=== PATIENT | male | born 1995 | race Caucasian/White ===

== ENCOUNTER 2022-05-24 19:52 | Emergency (ER) | payer SELFPAY ==
[2022-05-24 20:00] VITALS: BP 132/76; PULSE 80; RESP 16; TEMP 36.4; O2SAT 99; BMI 20.4
--- NOTE | 2022-05-24 20:24 | ED_ITS ---
HPI - General Adult General Time Seen by Provider: 20:24 Date Seen: 05/24/22 Chief complaint: Abdominal Pain Stated complaint: stomach pain Time Seen by Provider: 05/24/22 19:57 Source: patient History of Present Illness HPI narrative: Efe is a 26-year-old male no past medical history presents emerged department with abdominal pain. Patient states that around 1:00 p.m. 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 Patient had an AW burger at noon today, did not have any symptoms after that and 9:00 p.m., no associated nausea or vomiting, no diarrhea, denies any smoking or alcohol use, the pain persisted throughout the day until this evening. He has less of an appetite at this time, when he takes big breaths in he gets sharp pains to the area. If he holds his breath there is no pain. Patient did smoke marijuana prior to having symptoms. He denies any shortness of breath at this time. Has not had anything like this in the past. Related Data Home Medications Medication Instructions Recorded Confirmed No Known Home Medications 05/24/22 05/24/22 Allergies Allergy/AdvReac Type Severity Reaction Status Date / Time No Known Drug Allergies Allergy Verified 05/24/22 20:02 Review of Systems Status of ROS: Reports: 10 or more systems reviewed and unremarkable except as noted in History and below [facility] Medical History No significant past medical history Surgical History No significant past surgical history Social History Smoking Status: Current every day smoker Do you use any of these nicotine containing products: None Second hand tobacco smoke exposure: Yes How often do you have a drink containing alcohol: monthly or less How often do you have six or more drinks on one occasion: Never AUDIT-C Alcohol total score: 1 Non-prescribed substance use: denies use Exam Narrative: Exam Narrative: General: NAD laying comfortably HEENT: Pupils equal round reactive to light Neck: Supple, full range of motion Lungs: Clear to auscultation bilaterally Heart: Normal sinus rhythm S1-S2 Abdomen: Soft, bowel sounds present, mild tenderness to palpation the right upper quadrant Muscle skeletal: +5 strength lower upper extremities Neuro: Alert awake and oriented x3 Const: Vital Signs, click to edit/add: Vital Signs - 24 hr 05/24/22 20:00 05/24/22 20:34 05/24/22 21:35 Temperature 97.6 F 97.6 F 97.6 F Pulse Rate [Right Pulse Oximeter] 80 Respiratory Rate 16 Blood Pressure [Ri ght Upper Arm] 132/76 Pulse Oximetry 99 Oxygen Delivery Me thod Room Air 05/24/22 21:36 05/24/22 23:31 05/24/22 23:48 Temperature 97.6 F 97.6 F 97.6 F Pulse Rate [Right Pulse Oximeter] 74 70 70 Respiratory Rate 16 16 16 Blood Pressure [Ri ght Upper Arm] 125/70 111/74 111/74 Pulse Oximetry 99 99 Oxygen Delivery Me thod Room Air Room Air Course Course Hospital Course: 8:00 PM: AIDET performed. vitals are normal. IV peripheral, GI cocktail and 30 mg Toradol for pain. Will obtain CBC, CRP, CMP, lipase urinalysis, suspect gastritis possible cholecystitis versus possible muscle skeletal. Differential diagnosis include but not limited to appendicitis, ischemia, bowel perforation, volvulus and bowel obstruction, other differential diagnosis include are cholecystitis pancreatitis hepatitis gastritis GERD diverticulitis PUD pyelonephritis UTI renal stone testicular torsion scrotal process inflammatory bowel disease as well as other etiologies. Reevaluation(s) Reevaluation #1: Patient had no change in pain with GI cocktail and Toradol, CBC did show mild leukocytosis and mildly elevated total bilirubin, patient did have some bilirubin and RBCs in his urinalysis, patient has had history of kidney stones, will obtain CT abdomen pelvis without IV contrast rule out any gallstones versus urolithiasis. To given additional 4 mg IV morphine for his pain. Time: 21:44 Reevaluation #2: CT abdomen and pelvis without IV contrast: Impression: Subtle heterogeneous hypodense stranding in the periphery of the liver may be related to underlying edema in the setting of hepatitis or hepatic congestion. Correlate with laboratory values. No radiopaque gallstones identified. No gallbladder inflammation or biliary ductal dilatation. 4 millimeter nonobstructing stone in the superior pole of the left kidney. Please note that all CT scans at this facility use dose modulation, iterative reconstruction, and/or weight-based dosing when appropriate to reduce radiation dose to as low as reasonably achievable. Patient was update on his imaging results. he is feeling better after the above care given. Will obtain portable XR chest one view. Time: 23:30 Reevaluation #3: Patient updated on his normal imaging results, no acute findings. Acute hepatitis panel added to his labs based on patient's findings of hypodense stranding in the peripheral of the liver may be related to underlying edema in the setting of hepatitis or hepatic congestion on CT scan. Patient has no risk factors, LFTs otherwise were within normal limits, CRP negative. Plan would be to give contact information to get an appointment in clinic for ED follow up and recheck. Reasons to return were given. All questions answered. Vital Signs Vital signs: Initial Vital Signs Temperature 97.6 F 05/24/22 20:00 Temperature Source Temporal Artery Scan 05/24/22 20:00 Pulse Rate 80 05/24/22 20:00 Respiratory Rate 16 05/24/22 20:00 Blood Pressure 132/76 05/24/22 20:00 Blood Pressure Mean 94 05/24/22 20:00 Blood Pressure Position Sitting 05/24/22 20:00 Pulse Oximetry 99 05/24/22 20:00 Oxygen Delivery Method 05/24/22 20:00 Vital Signs Temperature 97.6 F 05/24/22 20:00 Pulse Rate 80 05/24/22 20:00 Respiratory Rate 16 05/24/22 20:00 Blood Pressure 132/76 05/24/22 20:00 Pulse Oximetry 99 05/24/22 20:00 Oxygen Delivery Method 05/24/22 20:00 Temperature 97.6 F 05/24/22 23:48 Pulse Rate 70 05/24/22 23:48 Respiratory Rate 16 05/24/22 23:48 Blood Pressure 111/74 05/24/22 23:48 Pulse Oximetry 99 05/24/22 23:31 Oxygen Delivery Method 05/24/22 23:31 Medical Decision Making Lab Data Labs: Lab Results 05/24/22 05/24/22 05/24/22 Range/Units 20:25 20:25 20:25 WBC 11.43 H (4.50-11.00) K/uL RBC 5.35 (4.30-5.90) m/uL Hgb 16.7 (13.5-17.5) gm/dL Hct 47.2 (37.0-53.0) % MCV 88 (80-100) fL MCH 31 (26-34) pg MCHC 35 (32-36) gm/dL RDW Coeff of Collette 12.4 (11.5-15.5) % Plt Count 277 (140-440) K/uL Neut % (Auto) 70.6 (42.0-72.0) % Lymph % (Auto) 21.0 (20-44) % [place] % (Auto) 7.0 (0.0-11.0) % Eos % (Auto) 1.0 (0.0-7.0) % Baso % (Auto) 0.3 (0.0-3.0) % Neut # (Auto) 8.10 H (1.7-7.0) K/uL Lymph # (Auto) 2.40 (0.90-2.90) K/uL [place] # (Auto) 0.80 (0.00-0.90) K/UL Eos # (Auto) 0.10 (0.00-0.50) K/uL Baso # (Auto) 0.00 (0.00-0.30) K/uL Abs Immat Gran (auto) 0.01 (0.00-0.30) K/uL Sodium 141 (135-149) mmol/L Potassium 3.8 (3.6-5.1) mmol/L Chloride 103 (96-114) mmol/L Carbon Dioxide 26 (20-32) mmol/L BUN 12 (5-24) mg/dL Creatinine 1.4 (0.5-1.5) mg/dL Estimated Creat Clear 67.27 Estimated GFR 72 ml/min Glucose 105 (60-115) mg/dL Calcium 9.8 (8.4-10.6) mg/dL Total Bilirubin 1.8 H (0.1-1.5) mg/dL AST 27 (12-35) U/L ALT 16 (4-50) U/L Alkaline Phosphatase 53 (40-150) U/L C-Reactive Protein < 0.5 L (0.5-1.0) mg/dL Total Protein 8.3 (6.0-8.3) g/dL Albumin 5.0 (3.3-5.0) g/dL Lipase 24 (23-300) U/L Urine Color Yellow (Yellow) Urine Appearance Clear (Clear) Urine pH 6.0 (5.0-8.5) Ur Specific [place] >= 1.030 (1.000-1.030) Urine Protein 1+ A (Negative) Urine Glucose (UA) Negative (Negative) Urine Ketones 1+ A (Negative) Urine Blood Negative (Negative) Urine Nitrite Negative (Negative) Urine Bilirubin 2+ A (Negative) Urine Urobilinogen 0.2 (0.2-1.0) Ur Leukocyte Esterase Negative (Negative) Urine RBC 2-5 A (0-2) Urine WBC 0-2 (0-5) Ur Squamous Epith Cells None (None-Few) Urine Bacteria None (None) Discharge Plan Discharge Clinical Impression: Right upper quadrant abdominal pain Patient Disposition: Home, Self-Care Condition: Improved Instructions: Abdominal Pain (ED) Additional Instructions: To call the [place] [facility] in the morning [phone] to schedule a follow up appointment early next week. Will be called if any abnormalities on follow up labs. To return if worsening symptoms. Activity Level: Activity as Tolerated Prescriptions: No Action No Known Home Medications Stand Alone Forms: [facility] Info Instructions
[2022-05-24 20:30] LABS: Basophils Percent Auto 0.3 % (0.0-3.0); Hematocrit 47.2 % (37.0-53.0); Hemoglobin* 16.7 gm/dL (13.5-17.5); Immature Granulocytes Abs Auto 0.01 K/uL (0.00-0.30); Mean Corpuscular HGB Conc 35 gm/dL (32-36); Mean Corpuscular Hemoglobin 31 pg (26-34); Mean Corpuscular Volume 88 fL (80-100); Neutrophils Percent Auto 70.6 % (42.0-72.0); Platelet Count* 277 K/uL (140-440); RDW Coefficient of Variation % 12.4 % (11.5-15.5); Red Blood Count 5.35 m/uL (4.30-5.90); White Blood Count* 11.43 K/uL (4.50-11.00)
[2022-05-24 20:31] LABS: Appearance Urine Clear (Clear); Bilirubin Urine 2+ (Negative); Blood Urine Negative (Negative); Color Urine Yellow (Yellow); Glucose Urine Negative (Negative); Ketones Urine 1+ (Negative); Leukocyte Esterase Urine Negative (Negative); Nitrite Urine Negative (Negative); Protein Urine 1+ (Negative); Specific Gravity Urine >= 1.030 (1.000-1.030); Urobilinogen Urine 0.2 (0.2-1.0)
[2022-05-24 20:34] VITALS: TEMP 36.4
[2022-05-24] MEDS: KETOROLAC 30 MG/ML inj IVP (20:34)
[2022-05-24] MEDS: GI COCKTAIL (VISC LIDO/ANTACID) 30 ML PO (20:37)
[2022-05-24 20:38] LABS: Slide Review Reflex No
[2022-05-24 20:43] LABS: Chloride* 103 mmol/L (96-114); Sodium* 141 mmol/L (135-149)
[2022-05-24 20:44] LABS: Potassium* 3.8 mmol/L (3.6-5.1)
[2022-05-24 20:46] LABS: Aspartate Amino Transferase* 27 U/L (12-35); Bilirubin Total* 1.8 mg/dL (0.1-1.5); Carbon Dioxide* 26 mmol/L (20-32); Creatinine* 1.4 mg/dL (0.5-1.5); Est. Creatinine Clearance* 67.27; Estimated Glomerular Filt Rate 72 ml/min; Total Protein* 8.3 g/dL (6.0-8.3)
[2022-05-24 20:47] LABS: Alanine Aminotransferase* 16 U/L (4-50); Alkaline Phosphatase* 53 U/L (40-150); Blood Urea Nitrogen* 12 mg/dL (5-24); Calcium* 9.8 mg/dL (8.4-10.6); Glucose* 105 mg/dL (60-115); Lipase* 24 U/L (23-300)
[2022-05-24 20:50] LABS: C Reactive Protein* < 0.5 mg/dL (0.5-1.0)
[2022-05-24 20:58] LABS: WBC Urine 0-2 (0-5)
[2022-05-24 21:35] VITALS: TEMP 36.4
[2022-05-24 21:36] VITALS: BP 125/70; PULSE 74; RESP 16; TEMP 36.4; O2SAT 99
--- NOTE | 2022-05-24 21:41 | CRLHL7_ITS ---
For Patients: As a result of the Century Cures Act, medical imaging exams and procedure reports are released immediately into your electronic medical record. You may view this report before your referring provider. If you have questions, please contact your health care provider. INDICATION: Right upper quadrant pain, question gallstones.. TECHNIQUE: CT abdomen and pelvis acquired with 63 cc Isovue 370 IV contrast. COMPARISON: None. FINDINGS: Lower chest: Unremarkable. Liver: Subtle hypodense stranding at the periphery of the liver, may be related to edema. Fatty infiltration along the falciform ligament. Otherwise, normal in size and attenuation. No suspicious masses. Gallbladder and bile ducts: Unremarkable. No radiopaque stones or inflammation. No biliary dilatation. Pancreas: Unremarkable. No mass or inflammation. Spleen: Unremarkable. Normal in size. No masses. Adrenal glands: Unremarkable. No nodules. Kidneys: 4 millimeter nonobstructing stone in the superior pole of the left kidney. no hydronephrosis or hydroureter. Scattered too small to characterize hypodensities bilaterally.. GI tract: Unremarkable. Normal in caliber. No sign of mass or inflammation. Normal appendix. Vasculature: Abdominal aorta is normal in caliber. Mesenteric arteries are patent. Lymph nodes: No lymphadenopathy. Peritoneum/Abdominal Wall: Unremarkable. No sign of mass or infiltration. No free air or significant free fluid. Pelvis: Bladder is decompressed. Bones: Unremarkable for age. IMPRESSION: Subtle heterogeneous hypodense stranding in the periphery of the liver may be related to underlying edema in the setting of hepatitis or hepatic congestion. Correlate with laboratory values. No radiopaque gallstones identified. No gallbladder inflammation or biliary ductal dilatation. 4 millimeter nonobstructing stone in the superior pole of the left kidney. Please note that all CT scans at this facility use dose modulation, iterative reconstruction, and/or weight-based dosing when appropriate to reduce radiation dose to as low as reasonably achievable. Dictated by Neena Hinojosa MD @ 05/24/2022 10:33:07 PM (Electronically Signed)
[2022-05-24] MEDS: MORPHINE 4 MG/ML INJ IVP (21:52)
--- NOTE | 2022-05-24 23:20 | CRLHL7_ITS ---
For Patients: As a result of the Cures Act, medical imaging exams and procedure reports are released immediately into your electronic medical record. You may view this report before your referring provider. If you have questions, please contact your health care provider. INDICATION: Lower right chest pain. TECHNIQUE: Chest 1 views. COMPARISON: None. FINDINGS: Lungs: Clear lungs. No consolidation. Pleura: No pleural effusion or pneumothorax. Heart and Mediastinum: The cardiomediastinal silhouette is normal. The vessels are unremarkable. Bones: Unremarkable. IMPRESSION: No acute cardiopulmonary disease. Dictated by Jericho Brennan MD @ 05/24/2022 11:48:42 PM (Electronically Signed)
[2022-05-24 23:31] VITALS: BP 111/74; PULSE 70; RESP 16; TEMP 36.4; O2SAT 99
[2022-05-24 23:48] VITALS: BP 111/74; PULSE 70; RESP 16; TEMP 36.4
[2022-05-26 15:35] LABS: Hepatitis B Core Antibody, IgM Negative (Negative); Hepatitis B Surface Antigen Negative (Negative); Hepatitis C Antibody by CIA Negative (Negative)
== END 2022-05-24 23:59 | disposition home or self-care (01) ==
PROVIDERS: Emergency Provider Student in an Organized Health Care Education/Training Program
DX: R10.11 Right upper quadrant pain (principal)
CPT/HCPCS: 36415; 71045; 74177; 80053; 80074; 81003; 81015; 83690; 85025; 86140; 96374; 96375; 99283; 99284; A9270; J1885; J2270; Q9967

== ENCOUNTER 2023-12-31 10:24 | Emergency (ER) | payer OTHER, SELFPAY ==
[2023-12-31 10:31] VITALS: BP 147/93; PULSE 69; RESP 16; TEMP 37.4; O2SAT 98; BMI 21.0
[2023-12-31 11:18] LABS: PCR FLU A Negative PCR FLU A (Negative); PCR FLU B Negative PCR FLU B (Negative); PCR RSV Negative PCR RSV (Negative); SARS PCR* Negative SARS-CoV-2 (Negative)
--- NOTE | 2023-12-31 13:09 | XR_ITS ---
Patient: BRAULIO TORREZ Facility:?[facility] Patient ID:?[id number] Site Patient ID:?[id number]. Site :?[id number] Study:?XRay-Chest 2 view-12/31/2023 1:49:20 PM Ordering Physician:Jenniffer Oneil Final Report: Indication: Cough and shortness of breath Comparison: Single-view chest May 24, 2022 Technique: PA and lateral views of the chest Findings: There is no focal consolidation, effusion, or pneumothorax. The cardiomediastinal silhouette is within normal limits. The bony thorax is grossly intact. Impression: No acute cardiopulmonary abnormality. Dictated by Jacek Chen MD @ 12/31/2023 2:05:08 PM Signed by:?Jaeck Chen MD @12/31/2023 2:05:08 PM (Electronic Signature)
--- NOTE | 2023-12-31 13:11 | ED.GENADULT ---
HPI - General Adult General Date Seen: 12/31/23 Chief complaint: Shortness of Breath/Dyspnea Stated complaint: difficulty breathing Time Seen by Provider: 12/31/23 13:02 Source: patient and RN notes reviewed Mode of arrival: ambulatory Limitations: no limitations History of Present Illness HPI narrative: Patient is a 28-year-old who has been feeling a little poorly the past couple weeks with either allergies or a little upper respiratory infection, some congestion and cough. Today, he went out to smoke a cigarette and felt short of breath. He notes when he takes a very deep breath that his chest feels tight and sore. If he takes normal breath he does not have any chest pain. He is coughing up some mucus, denies fevers. Denies any lower extremity swelling or pain. Family history of asthma in his sister and mom but he does not carry that diagnosis. No family history of DVT or PE. No recent immobility or travel. No hemoptysis. He normally smokes a pack a day but says he has only been smoking 3 or 4 day for the past couple of weeks. Denies other medical history. Related Data Home Medications Medication Instructions Recorded Confirmed No Known Home Medications 05/24/22 05/24/22 Allergies Allergy/AdvReac Type Severity Reaction Status Date / Time No Known Drug Allergies Allergy Verified 05/24/22 20:02 Review of Systems Status of ROS: Reports: 10 or more systems reviewed and unremarkable except as noted in History and below [facility] Medical History No significant past medical history Surgical History No significant past surgical history Social History Smoking Status: Current every day smoker Do you use any of these nicotine containing products: None Second hand tobacco smoke exposure: Yes Non-prescribed substance use: marijuana (any form) service: No Exam Narrative: Exam Narrative: Vital signs as noted above. In general, an alert, well-appearing patient. Breathing easily, speaks in full sentences. Head: Normocephalic, atraumatic. Eyes: Pupils are equal reactive. Extraocular movements are full. Conjunctivae are normal. ENT: Mucous membranes are moist. Throat is normal. TMs normal bilaterally. Neck: Supple without lymphadenopathy. No stridor. Heart: Regular rate and rhythm. No murmur or rub. Lungs: Some scattered rhonchi. No increased work of breathing. Extremities: Well perfused. No edema. No calf tenderness. Pulses intact. Neurologic: Patient is alert and oriented to person and place. Speech is fluent. Face is symmetric. Moves all extremities equally. Affect: Normal. Skin: Warm and dry. Well perfused. Const: Vital Signs, click to edit/add: Vital Signs - 24 hr 12/31/23 10:31 12/31/23 13:18 Temperature 99.4 F Pulse Rate [Pulse Oximeter] 69 88 Respiratory Rate 16 16 Blood Pressure [Le ft Upper Arm] 147/93 H 119/85 Pulse Oximetry 98 99 Oxygen Delivery Me thod Room Air Room Air Documenting provider has reviewed patient's vital signs: yes Course Course ED Course: Patient presents with some upper respiratory symptoms, cough, shortness of breath with normal O2 sats. Viral swab was negative. Wells score for PE is 0, I do not think he needs ruled out for pulmonary embolism. Will do a chest x-ray to evaluate for possible pneumonia, trial of DuoNeb. Chest x-ray by my review is negative for infiltrate or other abnormalities. Final radiology read is negative. He does feel somewhat improved after DuoNeb. I think it is reasonable to treat him for bronchitis and bronchospasm. Encouraged him to minimize smoking as much as possible. Will discharge with an albuterol inhaler as well as some prednisone. Return any time for worsening, high fevers, significant shortness of breath etcetera. Primary care follow-up if not improving over the next week. Vital Signs Vital signs: Initial Vital Signs Temperature 99.4 F 12/31/23 10:31 Temperature Source Temporal Artery Scan 12/31/23 10:31 Pulse Rate 69 12/31/23 10:31 Respiratory Rate 16 12/31/23 10:31 Blood Pressure 147/93 H 12/31/23 10:31 Blood Pressure Mean 111 H 12/31/23 10:31 Blood Pressure Position Sitting 12/31/23 10:31 Pulse Oximetry 98 12/31/23 10:31 Oxygen Delivery Method Room Air 12/31/23 10:31 Vital Signs Temperature 99.4 F 12/31/23 10:31 Pulse Rate 69 12/31/23 10:31 Respiratory Rate 16 12/31/23 10:31 Blood Pressure 147/93 H 12/31/23 10:31 Pulse Oximetry 98 12/31/23 10:31 Oxygen Delivery Method Room Air 12/31/23 10:31 Temperature 99.4 F 12/31/23 10:31 Pulse Rate 88 12/31/23 13:18 Respiratory Rate 16 12/31/23 13:18 Blood Pressure 119/85 12/31/23 13:18 Pulse Oximetry 99 12/31/23 13:18 Oxygen Delivery Method Room Air 12/31/23 13:18 Medications Administered Medications: Discontinued Medications Generic Name Dose Route Start Last Admin Trade Name Freq PRN Reason Stop Dose Admin Albuterol/Ipratropium 1 neb 12/31/23 13:09 12/31/23 13:16 Iprat-Albut 0.5-2.5 Mg/3 Ml Neb 12/31/23 13:10 1 neb ONCE ONE Administration Medical Decision Making Lab Data Labs: Lab Results 12/31/23 Range/Units 10:35 SARS-CoV-2 (PCR) Negative SARS-CoV-2 (Negative) Influenza Type A (PCR) Negative PCR FLU A (Negative) Influenza Type B (PCR) Negative PCR FLU B (Negative) RSV (PCR) Negative PCR RSV (Negative) Discharge Plan Discharge Clinical Impression: Bronchitis Patient Disposition: Home, Self-Care Condition: Improved Instructions: Acute Bronchitis (ED) Additional Instructions: Prednisone and albuterol as prescribed. Return for worsening shortness of breath, fevers, or other significant deterioration. Primary care follow-up if not improved over the next week. Minimize smoking as much as possible. Prescriptions: No Action No Known Home Medications Follow Up/Referrals: Provider,Not a Local [Primary Care Provider] - Stand Alone Forms: [facility] Info Instructions
[2023-12-31] MEDS: IPRAT-ALBUT 0.5-2.5 MG/3 ML NEB 1 NEB IH (13:16)
[2023-12-31 13:18] VITALS: BP 119/85; PULSE 88; RESP 16; O2SAT 99
== END 2023-12-31 14:25 | disposition home or self-care (01) ==
PROVIDERS: Emergency Provider Emergency Medicine
DX: J40 Bronchitis, not specified as acute or chronic (principal)
CPT/HCPCS: 71046; 87631; 94640; 99283; 99284

== ENCOUNTER 2024-03-26 12:55 | Emergency (ER) | payer OTHER, SELFPAY ==
[2024-03-26] VITALS (9 sets, daily range): BP systolic 92–130; BP diastolic 55–77; PULSE 60–90; RESP 16–18; TEMP 36.1; O2SAT 96–99; BMI 21.0
[2024-03-26] MEDS: 0.9 % SODIUM CHLORIDE 1000 ml 1,000 ML IV ×2 (13:15→14:12)
--- NOTE | 2024-03-26 13:15 | ED.GENADULT ---
HPI - General Adult General Time Seen by Provider: 13:15 Date Seen: 03/26/24 Chief complaint: Nausea/Vomiting Stated complaint: Vomiting blood after alcohol Time Seen by Provider: 03/26/24 13:08 Source: patient and RN notes reviewed Mode of arrival: ambulatory Limitations: no limitations History of Present Illness HPI narrative: This 28-year-old male is presenting to the ER with concern blood in his emesis. Patient admits he drank about 12 beers from about 8:00 to 11:00 p.m. last night. He started vomiting around 5:00 a.m. this morning. He is had had 2 episodes of emesis with a little blood streaking in it. He denies any abdominal pain. He is still feeling nauseated. He has had no history of any blood in his stools. He admits that he probably drinks a couple beers a day but not to this extent. He is dry heaving, retching in triage per nursing staff. He cannot keep water down per his report. No fevers or chills. Related Data Home Medications ?Medication ?Instructions ?Recorded ?Confirmed No Known Home Medications 05/24/22 03/26/24 Previous Rx's ?Medication ?Instructions ?Recorded albuterol sulfate 90 mcg/actuation 2 puff inhalation 6XD PRN 12/31/23 aerosol inhaler shortness of breath or wheezing #6.7 grams prednisone 20 mg tablet 20 mg PO BID #10 tabs 12/31/23 Allergies Allergy/AdvReac Type Severity Reaction Status Date / Time No Known Drug Allergies Allergy Verified 05/24/22 20:02 Review of Systems Status of ROS: Reports: 6 or more systems reviewed and unremarkable except as noted in History and below [facility] Medical History No significant past medical history Surgical History No significant past surgical history Social History Smoking Status: Current every day smoker Do you use any of these nicotine containing products: None Second hand tobacco smoke exposure: Yes How often do you have a drink containing alcohol: 4 or more times a week How many standard drinks containing alcohol do you have on a typical day: 3 or 4 How often do you have six or more drinks on one occasion: Weekly AUDIT-C Alcohol total score: 8 Non-prescribed substance use: marijuana (any form) service: No Exam Const: Vital Signs, click to edit/add: Vital Signs - 24 hr 03/26/24 13:01 03/26/24 13:43 03/26/24 13:44 Temperature 96.9 F L Pulse Rate Pulse Rate [Pulse Oximeter] 67 60 Respiratory Rate 18 16 Blood Pressure Blood Pressure [Ri ght Upper Arm] 130/77 118/71 Pulse Oximetry 99 99 99 Oxygen Delivery Me thod Room Air Room Air 03/26/24 14:00 03/26/24 14:30 03/26/24 14:47 Temperature Pulse Rate 70 Pulse Rate [Pulse Oximeter] 62 66 Respiratory Rate Blood Pressure Blood Pressure [Ri ght Upper Arm] 100/55 L Pulse Oximetry 96 98 98 Oxygen Delivery Me thod Room Air Room Air 03/26/24 14:52 03/26/24 15:00 03/26/24 15:02 Temperature Pulse Rate 90 67 61 Pulse Rate [Pulse Oximeter] Respiratory Rate Blood Pressure 101/62 92/56 L Blood Pressure [Ri ght Upper Arm] Pulse Oximetry 99 98 98 Oxygen Delivery Me thod 28-year-old male is alert, interactive, no parents stress but hanging on an emesis bag. Certainly does look like he does not feel well. Pupils are equal round, conjugate gaze, sclera clear. Symmetrical facial function. Lips look normal but oropharynx with dry mucosa, see no blood. Neck supple, no masses or adenopathy. Lungs are clear, good air entry, no wheezing or crackles. CV regular rate and rhythm no murmur, normal S1-S2, no S3-S4. Abdomen is soft, nontender, nondistended, bowel sounds are normal. There is no rebound or guarding, no masses, organomegaly noted. Patient was ambulatory into the ED of his own accord. Skin visualize the out any concerning change or rash. 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 We did discuss that these are almost always self-limited. We need to work on hydrating him, improve his nausea slid he is not retching or has any further vomiting. We will give him a dose of IV Protonix. Underlying gastritis with his chronic alcohol use may be possible as well. Will observe him here, initiate a L of IV fluids and check appropriate labs. I do not see that any imaging is needed at this time but will consider if there is any concerning labs or change in his status. Reevaluation(s) Time of Reevaluation #1: 14:43 Reevaluation #1: Patient was resting but easily arousable. He is still feeling a little nauseated. He has almost received it a full 2 L of IV fluids and has not had urinate yet. Will give him a 2nd dose of IV Zofran, 1/3 L of fluids with lactated Ringer's. Probable discharge to home after that. Will likely send him home with some Zofran from [facility] (10 tablets, 1 Q8 hours prn). Time of Reevaluation #2: 16:02 Reevaluation #2: Patient has been up to the bathroom ambulatory, did finally urinate. He is reportedly feeling better per nursing staff. Ready to discharge to home at this time. Vital Signs Vital signs: Initial Vital Signs Temperature 96.9 F L 03/26/24 13:01 Temperature Source Temporal Artery Scan 03/26/24 13:01 Pulse Rate 67 03/26/24 13:01 Pulse Rhythm Regular 03/26/24 13:01 Respiratory Rate 18 03/26/24 13:01 Blood Pressure 130/77 03/26/24 13:01 Blood Pressure Mean 94 03/26/24 13:01 Blood Pressure Position Supine 03/26/24 13:01 Pulse Oximetry 99 03/26/24 13:01 Oxygen Delivery Method Room Air 03/26/24 13:01 Vital Signs Temperature 96.9 F L 03/26/24 13:01 Pulse Rate 67 03/26/24 13:01 Respiratory Rate 18 03/26/24 13:01 Blood Pressure 130/77 03/26/24 13:01 Pulse Oximetry 99 03/26/24 13:01 Oxygen Delivery Method Room Air 03/26/24 13:01 Temperature 96.9 F L 03/26/24 13:01 Pulse Rate 61 03/26/24 15:02 Respiratory Rate 16 03/26/24 13:44 Blood Pressure 92/56 L 03/26/24 15:02 Pulse Oximetry 98 03/26/24 15:02 Oxygen Delivery Method Room Air 03/26/24 14:30 Medications Administered Medications: Discontinued Medications Generic Name Dose Route Start Last Admin Trade Name Morganq PRN Reason Stop Dose Admin Sodium Chloride 1,000 mls @ 1,000 mls/hr 03/26/24 13:20 03/26/24 14:10 0.9 % Sodium Chloride 1000 Ml IV 03/26/24 14:19 Infused .Q1H YUNIER Infusion Sodium Chloride 1,000 mls @ 1,000 mls/hr 03/26/24 14:07 03/26/24 15:11 0.9 % Sodium Chloride 1000 Ml IV 03/26/24 15:06 Infused .Q1H YUNIER Infusion Lactated Ringer's 1,000 mls @ 1,000 mls/hr 03/26/24 14:43 03/26/24 15:07 Lactated Ringers 1000 Ml IV 03/26/24 15:42 1,000 mls/hr .Q1H ONE Administration Ondansetron HCl 4 mg 03/26/24 13:19 03/26/24 13:26 Ondansetron 2 Mg/Ml Inj IVP 03/26/24 13:20 4 mg ONCE ONE Administration Ondansetron HCl 4 mg 03/26/24 14:43 03/26/24 14:51 Ondansetron 2 Mg/Ml Inj IVP 03/26/24 14:44 4 mg ONCE ONE Administration Pantoprazole Sodium 80 mg 03/26/24 13:19 03/26/24 13:33 Pantoprazole Sodium 40 Mg Inj IVP 03/26/24 13:20 80 mg ONCE ONE Administration Medical Decision Making Lab Data Lab results reviewed: Yes I reviewed the patient's lab results Labs: Lab Results 03/26/24 Range/Units 13:15 WBC 14.06 H (4.50-11.00) K/uL RBC 5.88 (4.30-5.90) m/uL Hgb 18.9 H (13.5-17.5) gm/dL Hct 52.8 (37.0-53.0) % MCV 90 (80-100) fL MCH 32 (26-34) pg MCHC 36 (32-36) gm/dL RDW Coeff of Collette 12.9 (11.5-15.5) % Plt Count 307 (140-440) K/uL Neut % (Auto) 84.4 H (42.0-72.0) % Lymph % (Auto) 11.0 L (20-44) % [place] % (Auto) 4.1 (0.0-11.0) % Eos % (Auto) 0.1 (0.0-7.0) % Baso % (Auto) 0.3 (0.0-3.0) % Neut # (Auto) 11.90 H (1.7-7.0) K/uL Lymph # (Auto) 1.50 (0.90-2.90) K/uL [place] # (Auto) 0.60 (0.00-0.90) K/UL Eos # (Auto) 0.00 (0.00-0.50) K/uL Baso # (Auto) 0.00 (0.00-0.30) K/uL Abs Immat Gran (auto) 0.00 (0.00-0.30) K/uL Imm/Tot Granulo (auto) 0.1 % INR 0.97 (0.91-1.10) APTT 29 (23-33) Seconds Sodium 139 (135-149) mmol/L Potassium 4.1 (3.6-5.1) mmol/L Chloride 105 (96-114) mmol/L Carbon Dioxide 23 (20-32) mmol/L Anion Gap 11 (7-15) mEq/L BUN 8 (5-24) mg/dL Creatinine 1.1 (0.5-1.5) mg/dL Estimated Creat Clear 84.13 Estimated GFR 94 ml/min Glucose 116 H (60-115) mg/dL Lactate 2.7 H (0.5-1.9) mmol/L Calcium 9.9 (8.4-10.6) mg/dL Total Bilirubin 2.7 H (0.1-1.5) mg/dL AST 41 H (12-35) U/L ALT 24 (4-50) U/L Alkaline Phosphatase 56 (40-150) U/L Total Protein 8.3 (6.0-8.3) g/dL Albumin 5.4 H (3.3-5.0) g/dL Discharge Plan Discharge Clinical Impression: Hematemesis, Acute dehydration Patient Disposition: Home, Self-Care Condition: Improved Instructions: Dehydration (ED), Veronica-Ruiz Syndrome (ED) Additional Instructions: Highly encourage you to refrain from drinking. Prescription for Zofran provided, follow instructions for any further nausea. It is important to try to prevent further vomiting. Can drink and eat as your symptoms allow, no restrictions on diet. If you should start having further vomiting of blood, do need emergent re-evaluation. He can consider trying omeprazole 20 mg daily which is [id number], take this for 2 weeks as well. Omeprazole will help if there is any underlying gastritis in the stomach from alcohol use. You do not need to start this until tomorrow. Activity Level: Activity as Tolerated Discharge Diet: Regular Prescriptions: No Action No Known Home Medications albuterol sulfate 90 mcg/actuation HFA aerosol inhaler 2 puff inhalation 6XD PRN (Reason: shortness of breath or wheezing) Qty: 6.7 0RF prednisone 20 mg tablet 20 mg PO BID Qty: 10 0RF Follow Up/Referrals: Provider,Not a Local [Primary Care Provider] - Stand Alone Forms: [facility] Info Instructions
[2024-03-26] MEDS: ONDANSETRON 2 MG/ML inj 4 MG IVP ×2 (13:26→14:51)
[2024-03-26 13:29] LABS: Basophils Percent Auto 0.3 % (0.0-3.0); Eosinophils Percent Auto 0.1 % (0.0-7.0); Hematocrit 52.8 % (37.0-53.0); Hemoglobin* 18.9 gm/dL (13.5-17.5); Immature Granulocytes Pct Auto 0.1 %; Lactate* 2.7 mmol/L (0.5-1.9); Mean Corpuscular HGB Conc 36 gm/dL (32-36); Mean Corpuscular Hemoglobin 32 pg (26-34); Mean Corpuscular Volume 90 fL (80-100); Monocytes Percent Auto 4.1 % (0.0-11.0); Neutrophils Percent Auto 84.4 % (42.0-72.0); Platelet Count* 307 K/uL (140-440); RDW Coefficient of Variation % 12.9 % (11.5-15.5); Red Blood Count 5.88 m/uL (4.30-5.90); White Blood Count* 14.06 K/uL (4.50-11.00)
[2024-03-26] MEDS: PANTOPRAZOLE SODIUM 40 MG INJ 80 MG IVP (13:33)
[2024-03-26 13:38] LABS: Slide Review Reflex No
[2024-03-26 13:47] LABS: Albumin* 5.4 g/dL (3.3-5.0); Chloride* 105 mmol/L (96-114)
[2024-03-26 13:48] LABS: Potassium* 4.1 mmol/L (3.6-5.1); Sodium* 139 mmol/L (135-149)
[2024-03-26 13:49] LABS: INR 0.97 (0.91-1.10); Prothrombin Time 13.5 Seconds
[2024-03-26 13:50] LABS: Alanine Aminotransferase* 24 U/L (4-50); Alkaline Phosphatase* 56 U/L (40-150); Anion Gap 11 mEq/L (7-15); Aspartate Amino Transferase* 41 U/L (12-35); Bilirubin Total* 2.7 mg/dL (0.1-1.5); Blood Urea Nitrogen* 8 mg/dL (5-24); Carbon Dioxide* 23 mmol/L (20-32); Creatinine* 1.1 mg/dL (0.5-1.5); Est. Creatinine Clearance* 84.13; Estimated Glomerular Filt Rate 94 ml/min; Glucose* 116 mg/dL (60-115); Partial Thromboplastin Time* 29 Seconds (23-33); Total Protein* 8.3 g/dL (6.0-8.3)
[2024-03-26 13:51] LABS: Calcium* 9.9 mg/dL (8.4-10.6)
[2024-03-26] MEDS: LACTATED RINGERS 1000 ML 1,000 ML IV (15:07)
--- NOTE | 2024-03-26 15:46 | ED.NURSE ---
was up to br to void. is feeling much better.
== END 2024-03-26 16:14 | disposition home or self-care (01) ==
PROVIDERS: Emergency Provider Family Medicine
DX: K92.0 Hematemesis (principal); E86.0 Dehydration
CPT/HCPCS: 36415; 80053; 83605; 85025; 85610; 85730; 94761; 96374; 96375; 99284; J2405; J2470; J7030; J7120

== ENCOUNTER 2024-07-10 21:56 | Emergency (ER) | payer SELFPAY ==
[2024-07-10 22:00] VITALS: BP 139/86; PULSE 78; RESP 16; TEMP 36.6; O2SAT 96; BMI 20.4
--- NOTE | 2024-07-10 22:10 | ED.GENADULT ---
HPI - General Adult General Chief complaint: Alcohol/Intoxication Stated complaint: ETOH Time Seen by Provider: 07/10/24 22:09 History of Present Illness HPI narrative: Patient is alert and orientated. Reports drinking [place] (estimates 1/ 2L) since 6PM. Has vomited several times, says he feels terrible. 28-year-old and man presenting to the emergency department. Says he has been sick all week. Began with vomiting and over last 2 days has had increasing abdominal pain. Seems to have isolated down to the right lower abdomen to his worried about appendicitis. Also has pain in his testicles bilaterally. Sure to temp to 101 yesterday he thinks. Apparently has had kidney stones before. Does have Zofran available from ?way back in ?. Has not taken it sounds like because he thought it was old. Seen in this emergency department 3 months ago approximately with concern of vomiting and possible Veronica-Ruiz tears, hematemesis, alcohol abuse. Related Data Home Medications ?Medication ?Instructions ?Recorded ?Confirmed No Known Home Medications 05/24/22 03/26/24 Previous Rx's ?Medication ?Instructions ?Recorded albuterol sulfate 90 mcg/actuation 2 puff inhalation 6XD PRN 12/31/23 aerosol inhaler shortness of breath or wheezing #6.7 grams prednisone 20 mg tablet 20 mg PO BID #10 tabs 12/31/23 Allergies Allergy/AdvReac Type Severity Reaction Status Date / Time No Known Drug Allergies Allergy Verified 05/24/22 20:02 Review of Systems Status of ROS: Reports: 6 or more systems reviewed and unremarkable except as noted in History and below [facility] Medical History No significant past medical history Surgical History No significant past surgical history Social History Smoking Status: Current some day smoker What tobacco products do you use: cigarettes Smoking packs per day: 1 Smoking cigarettes per day: 20.0 Do you use any of these nicotine containing products: None Second hand tobacco smoke exposure: Yes How often do you have a drink containing alcohol: 4 or more times a week How many standard drinks containing alcohol do you have on a typical day: 3 or 4 How often do you have six or more drinks on one occasion: Monthly AUDIT-C Alcohol total score: 7 Non-prescribed substance use: marijuana (any form) service: No Exam Narrative: Exam Narrative: Slim. Fatigued. Did arrive retching. Mouth is hyperemic. Some darkened/hairy tongue. Abdomen is flat and tender suprapubic centrally and maybe a little left not actually in the right low abdomen. Lungs are clear. Heart in regular rate and rhythm. Cranial nerves 2-12 intact. Const: Vital Signs, click to edit/add: Vital Signs - 24 hr 07/10/24 22:00 Temperature 97.8 F Pulse Rate [Pulse Oximeter] 78 Respiratory Rate 16 Blood Pressure [Ri ght Upper Arm] 139/86 Pulse Oximetry 96 Oxygen Delivery Me thod Room Air Documenting provider has reviewed patient's vital signs: yes Course Vital Signs Vital signs: Initial Vital Signs Temperature 97.8 F 07/10/24 22:00 Temperature Source Temporal Artery Scan 07/10/24 22:00 Pulse Rate 78 07/10/24 22:00 Respiratory Rate 16 07/10/24 22:00 Blood Pressure 139/86 07/10/24 22:00 Blood Pressure Mean 103 07/10/24 22:00 Pulse Oximetry 96 07/10/24 22:00 Oxygen Delivery Method Room Air 07/10/24 22:00 Vital Signs Temperature 97.8 F 07/10/24 22:00 Pulse Rate 78 07/10/24 22:00 Respiratory Rate 16 07/10/24 22:00 Blood Pressure 139/86 07/10/24 22:00 Pulse Oximetry 96 07/10/24 22:00 Oxygen Delivery Method Room Air 07/10/24 22:00 Temperature 97.8 F 07/10/24 22:00 Pulse Rate 66 07/11/24 00:08 Respiratory Rate 14 07/11/24 00:08 Blood Pressure 139/86 07/10/24 22:00 Pulse Oximetry 96 07/11/24 00:08 Oxygen Delivery Method Room Air 07/11/24 00:08 Medications Administered Medications: Discontinued Medications Generic Name Dose Route Start Last Admin Trade Name Freq PRN Reason Stop Dose Admin Sodium Chloride 500 mls @ 500 mls/hr 07/10/24 22:34 07/11/24 00:04 0.9 % Sodium Chloride 500 Ml IV 07/10/24 23:33 Infused .Q1H ONE Infusion Sodium Chloride 500 mls @ 500 mls/hr 07/10/24 23:47 07/11/24 01:10 0.9 % Sodium Chloride 500 Ml IV 07/11/24 00:46 Infused .Q1H ONE Infusion Ketorolac Tromethamine 30 mg 07/10/24 22:34 07/10/24 22:59 Ketorolac 30 Mg/Ml Inj IVP 07/10/24 22:35 30 mg ONCE ONE Administration Ondansetron HCl 4 mg 07/10/24 22:34 07/10/24 23:00 Ondansetron 2 Mg/Ml Inj IVP 07/10/24 22:35 4 mg ONCE ONE Administration Medical Decision Making MDM Narrative Medical decision making narrative: Initiated IV. Presume cyclic vomiting of some sort probably related to alcohol ingestion as described. Abdominal exam is more reassuring. Would hydrate, antiemetics, look for red flags in the labs warrant further investigation. Monitor for improvement. Received couple of L of IV hydration. Zofran and ketorolac. Overall improved partially assessed at the is was actually able to sleep here in the emergency department. I did address detox with him but he is not interested at this time. Ambulatory from the ER Medical Records Medical records reviewed: Yes I reviewed the patient's medical records Lab Data Lab results reviewed: Yes I reviewed the patient's lab results Labs: Lab Results 07/10/24 07/10/24 Range/Units 22:55 23:40 WBC 9.80 (4.50-11.00) K/uL RBC 5.44 (4.30-5.90) m/uL Hgb 17.2 (13.5-17.5) gm/dL Hct 49.1 (37.0-53.0) % MCV 90 (80-100) fL MCH 32 (26-34) pg MCHC 35 (32-36) gm/dL RDW Coeff of Collette 12.6 (11.5-15.5) % Plt Count 216 (140-440) K/uL Neut % (Auto) 63.5 (42.0-72.0) % Lymph % (Auto) 23.4 (20-44) % [place] % (Auto) 8.4 (0.0-11.0) % Eos % (Auto) 2.7 (0.0-7.0) % Baso % (Auto) 1.0 (0.0-3.0) % Neut # (Auto) 6.23 (1.7-7.0) K/uL Lymph # (Auto) 2.29 (0.90-2.90) K/uL [place] # (Auto) 0.80 (0.00-0.90) K/UL Eos # (Auto) 0.26 (0.00-0.50) K/uL Baso # (Auto) 0.10 (0.00-0.30) K/uL Abs Immat Gran (auto) 0.10 (0.00-0.30) K/uL Imm/Tot Granulo (auto) 1.0 % Sodium 137 (135-149) mmol/L Potassium 3.5 L (3.6-5.1) mmol/L Chloride 103 (96-114) mmol/L Carbon Dioxide 25 (20-32) mmol/L Anion Gap 9 (7-15) mEq/L BUN 11 (5-24) mg/dL Creatinine 1.2 (0.5-1.5) mg/dL Estimated Creat Clear 77.12 Estimated GFR 85 ml/min Glucose 100 (60-115) mg/dL Lactate 1.3 (0.5-1.9) mmol/L Calcium 9.0 (8.4-10.6) mg/dL Total Bilirubin 0.9 (0.1-1.5) mg/dL Direct Bilirubin 0.1 (0.0-0.5) mg/dL AST 38 H (12-35) U/L ALT 29 (4-50) U/L Alkaline Phosphatase 51 (40-150) U/L Total Protein 7.3 (6.0-8.3) g/dL Albumin 4.5 (3.3-5.0) g/dL Lipase 60 (23-300) U/L Urine Color Yellow (Yellow) Urine Appearance Clear (Clear) Urine pH 6.0 (5.0-8.5) Ur Specific [place] 1.025 (1.000-1.030) Urine Protein Negative (Negative) Urine Glucose (UA) Negative (Negative) Urine Ketones Negative (Negative) Urine Blood Negative (Negative) Urine Nitrite Negative (Negative) Urine Bilirubin Negative (Negative) Urine Urobilinogen 0.2 (0.2-1.0) Ur Leukocyte Esterase Negative (Negative) Urine RBC 0-2 (0-2) Urine WBC 0-2 (0-5) Ur Squamous Epith Cells None (None-Few) Urine Bacteria None (None) Ethyl Alcohol 0.21 H (0.01-0.03) % SARS-CoV-2 (PCR) Negative SARS-CoV-2 (Negative) Influenza Type A (PCR) Negative PCR FLU A (Negative) Influenza Type B (PCR) Negative PCR FLU B (Negative) Lab Acknowledgement Test Added Discharge Plan Discharge Clinical Impression: Alcohol intoxication, Abdominal pain, Vomiting, Dehydration Additional Instructions: I am concerned that these episodes or visits will continue to happen or might get worse if you do not stop drinking. You need to stop drinking. I understand you do not want to go to detox tonight. You might look into this on your own. Otherwise attend AA meetings or similar regularly. Prescribing more Zofran for you from [facility]. Prescriptions: No Action No Known Home Medications albuterol sulfate 90 mcg/actuation HFA aerosol inhaler 2 puff inhalation 6XD PRN (Reason: shortness of breath or wheezing) Qty: 6.7 0RF prednisone 20 mg tablet 20 mg PO BID Qty: 10 0RF Follow Up/Referrals: Provider,Not a Local [Primary Care Provider] - Stand Alone Forms: [employer] Info Instructions
[2024-07-10] MEDS: KETOROLAC 30 MG/ML inj IVP (22:59)
[2024-07-10] MEDS: ONDANSETRON 2 MG/ML inj 4 MG IVP (23:00)
[2024-07-10] MEDS: 0.9 % SODIUM CHLORIDE 500 ML 500 ML IV (23:00)
[2024-07-10 23:13] LABS: Lactate* 1.3 mmol/L (0.5-1.9)
[2024-07-10 23:15] LABS: Eosinophils Absolute Auto 0.26 K/uL (0.00-0.50); Eosinophils Percent Auto 2.7 % (0.0-7.0); Hematocrit 49.1 % (37.0-53.0); Hemoglobin* 17.2 gm/dL (13.5-17.5); Lymphocytes Absolute Auto 2.29 K/uL (0.90-2.90); Lymphocytes Percent Auto 23.4 % (20-44); Mean Corpuscular HGB Conc 35 gm/dL (32-36); Mean Corpuscular Hemoglobin 32 pg (26-34); Mean Corpuscular Volume 90 fL (80-100); Monocytes Percent Auto 8.4 % (0.0-11.0); Neutrophils Absolute Auto 6.23 K/uL (1.7-7.0); Neutrophils Percent Auto 63.5 % (42.0-72.0); Platelet Count* 216 K/uL (140-440); RDW Coefficient of Variation % 12.6 % (11.5-15.5); Red Blood Count 5.44 m/uL (4.30-5.90)
[2024-07-10 23:20] LABS: Appearance Urine Clear (Clear); Bilirubin Urine Negative (Negative); Blood Urine Negative (Negative); Color Urine Yellow (Yellow); Glucose Urine Negative (Negative); Ketones Urine Negative (Negative); Leukocyte Esterase Urine Negative (Negative); Nitrite Urine Negative (Negative); Protein Urine Negative (Negative); Slide Review Reflex No; Specific Gravity Urine 1.025 (1.000-1.030); Urobilinogen Urine 0.2 (0.2-1.0)
[2024-07-10 23:28] LABS: Albumin* 4.5 g/dL (3.3-5.0); Chloride* 103 mmol/L (96-114)
[2024-07-10 23:29] LABS: Potassium* 3.5 mmol/L (3.6-5.1); Sodium* 137 mmol/L (135-149)
[2024-07-10 23:31] LABS: Alkaline Phosphatase* 51 U/L (40-150); Anion Gap 9 mEq/L (7-15); Aspartate Amino Transferase* 38 U/L (12-35); Bilirubin Direct* 0.1 mg/dL (0.0-0.5); Bilirubin Total* 0.9 mg/dL (0.1-1.5); Blood Urea Nitrogen* 11 mg/dL (5-24); Carbon Dioxide* 25 mmol/L (20-32); Creatinine* 1.2 mg/dL (0.5-1.5); Est. Creatinine Clearance* 77.12; Estimated Glomerular Filt Rate 85 ml/min; Glucose* 100 mg/dL (60-115); Total Protein* 7.3 g/dL (6.0-8.3)
[2024-07-10 23:32] LABS: Alanine Aminotransferase* 29 U/L (4-50); Ethanol* 0.21 % (0.01-0.03)
[2024-07-10 23:38] LABS: RBC Urine 0-2 (0-2); WBC Urine 0-2 (0-5)
[2024-07-10 23:53] LABS: PCR FLU A Negative PCR FLU A (Negative); PCR FLU B Negative PCR FLU B (Negative); SARS PCR* Negative SARS-CoV-2 (Negative)
[2024-07-11] MEDS: 0.9 % SODIUM CHLORIDE 500 ML 500 ML IV (00:05)
[2024-07-11 00:08] VITALS: PULSE 66; RESP 14; O2SAT 96
[2024-07-11 00:34] LABS: Lipase* 60 U/L (23-300)
== END 2024-07-11 01:34 | disposition home or self-care (01) ==
PROVIDERS: Emergency Provider Family Medicine
DX: F10.129 Alcohol abuse with intoxication, unspecified (principal); E86.0 Dehydration; R11.10 Vomiting, unspecified
CPT/HCPCS: 36415; 80048; 80076; 81001; 82077; 83605; 83690; 85025; 87631; 96374; 96375; 99284; J1885; J2405; J7030

== ENCOUNTER 2024-09-07 21:56 | Emergency (ER) | payer OTHER, SELFPAY ==
[2024-09-07 22:15] VITALS: BP 128/78; PULSE 72; RESP 20; TEMP 36.6
--- NOTE | 2024-09-07 22:35 | ED.GENADULT ---
HPI - General Adult General Date Seen: 09/07/24 Chief complaint: Nausea/Vomiting Stated complaint: vomiting, stomach pain Time Seen by Provider: 09/07/24 22:35 History of Present Illness HPI narrative: 29-year-old male presenting to the ER today with his and his 3-year-old daughter (who is also being seen for vomiting and diarrhea). He developed symptoms this evening of nausea, vomiting, diarrhea. He and his note that their other child has been sick a few days ago with vomiting and diarrhea. His was sick yesterday. His daughter who is being seen with him today has been sick since yesterday. He 1st developed symptoms at 4:00 a.m.. He has had multiple episodes of nonbloody, nonbilious emesis. He has also had several episodes of liquidy diarrhea. No mucus or blood in his stool. He is having some abdominal pain from retching. No fever or chills. He has no known recent travel. No recent antibiotics Related Data Home Medications ?Medication ?Instructions ?Recorded ?Confirmed No Known Home Medications 05/24/22 03/26/24 Previous Rx's ?Medication ?Instructions ?Recorded albuterol sulfate 90 mcg/actuation 2 puff inhalation 6XD PRN 12/31/23 aerosol inhaler shortness of breath or wheezing #6.7 grams prednisone 20 mg tablet 20 mg PO BID #10 tabs 12/31/23 Allergies Allergy/AdvReac Type Severity Reaction Status Date / Time No Known Drug Allergies Allergy Verified 05/24/22 20:02 [facility] Medical History No significant past medical history Surgical History No significant past surgical history Social History Smoking Status: Current some day smoker What tobacco products do you use: cigarettes Smoking packs per day: 1 Smoking cigarettes per day: 20.0 Do you use any of these nicotine containing products: None Second hand tobacco smoke exposure: Yes How often do you have a drink containing alcohol: 4 or more times a week How many standard drinks containing alcohol do you have on a typical day: 3 or 4 How often do you have six or more drinks on one occasion: Monthly AUDIT-C Alcohol total score: 7 Non-prescribed substance use: marijuana (any form) service: No Exam Narrative: Exam Narrative: Constitutional: Appears well-developed and well-nourished. Alert. Conversant. Non toxic. HENT: Head: Atraumatic. Nose: Nose normal. Mouth/Throat: Oral mucosa is clear and moist. no trismus. Pharynx normal. Eyes: Conjunctivae normal. EOM normal. Pupils equal, round, and reactive to light. No scleral icterus. Neck: Normal range of motion. Neck supple. No tracheal deviation present. Cardiovascular: Normal rate, regular rhythm. No gallop. No friction rub. No murmur heard. Normal capillary refill. Pulmonary/Chest: Effort normal. No stridor. No respiratory distress. No wheezes. No rales. No rhonchi . No tenderness. Abdominal: Soft. Bowel sounds normal. No distension. No mass. No tenderness. No rebound. No guarding. No CVA tenderness Musculoskeletal: RUE: Normal range of motion. No tenderness. No deformity LUE: Normal range of motion. No tenderness. No deformity RLE: Normal range of motion. No edema. No tenderness. No deformity LLE: Normal range of motion. No edema. No tenderness. No deformity Neurological: Alert and oriented to person, place, and time. Normal strength. CN II-VII intact. No sensory deficit. GCS eye subscore is 4. GCS verbal subscore is 5. GCS motor subscore is 6. Normal coordination Skin: Skin is warm and dry. No rash noted. No pallor. Normal capillary refill. Normal skin turgor. Psychiatric: Normal mood. Normal affect. Const: Vital Signs, click to edit/add: Vital Signs - 24 hr 09/07/24 22:15 Temperature 97.9 F Pulse Rate [Pulse Oximeter] 72 Respiratory Rate 20 Blood Pressure [Le ft Upper Arm] 128/78 Oxygen Delivery Me thod Room Air Course Course ED Course: Recheck-nausea improved after Zofran. Tolerated p.o. challenge. Now is sleeping on the bed. Feeling better. Vital Signs Vital signs: Initial Vital Signs Temperature 97.9 F 09/07/24 22:15 Temperature Source Temporal Artery Scan 09/07/24 22:15 Pulse Rate 72 09/07/24 22:15 Respiratory Rate 20 09/07/24 22:15 Blood Pressure 128/78 09/07/24 22:15 Blood Pressure Mean 94 09/07/24 22:15 Oxygen Delivery Method Room Air 09/07/24 22:15 Vital Signs Temperature 97.9 F 09/07/24 22:15 Pulse Rate 72 09/07/24 22:15 Respiratory Rate 20 09/07/24 22:15 Blood Pressure 128/78 09/07/24 22:15 Oxygen Delivery Method Room Air 09/07/24 22:15 Temperature 97.9 F 09/07/24 22:15 Pulse Rate 72 09/07/24 22:15 Respiratory Rate 20 09/07/24 22:15 Blood Pressure 128/78 09/07/24 22:15 Oxygen Delivery Method Room Air 09/07/24 22:15 Medications Administered Medications: Discontinued Medications Generic Name Dose Route Start Last Admin Trade Name Freq PRN Reason Stop Dose Admin Loperamide HCl 4 mg 09/07/24 22:46 09/07/24 23:09 Loperamide Hcl 2 Mg Capsule PO 4 mg ONCE PRN Administration Ondansetron HCl 4 mg 09/07/24 22:46 09/07/24 23:09 Ondansetron Odt 4 Mg Tab PO 09/07/24 22:47 4 mg ONCE ONE Administration Medical Decision Making MDM Narrative Medical decision making narrative: This patient presents with vomiting and diarrhea. The patient's symptoms and exam could be consistent with a viral GI infection. His family members including his have been sick lately. One of his daughters with sick a few days ago and is now better. His was sick yesterday and she is now improving. His 3-year-old daughter as been sick since yesterday and she is being seen with him tonight. This pattern of spread would suggest a viral gastroenteritis. There is no high fever, severe pain, bilious or bloody emesis, blood or mucous in the stool, severe abdominal pain, or other concerning signs for a bacterial infection. No recent travel or high risk exposure for baceraial pathogen. No recent antibiotics or risk factors for C. diff. I don't see any evidence for appendicitis, bowel obstruction, abscess, bowel perforation, or other surgical emergency.. After meds given the patient is feeling better. At this point, the patient is non-septic appearing and well hydrated.I think the patient can be managed as an outpatient. We have discussed oral rehydration strategies. They understand and can perform the needed interventions at home. I have provided a prescription for antiemetics to facilitate oral hydration (Zofran 0 DT-[facility]). We have discussed the signs and symptoms of worsening dehydration. They understand the need for immediate reevaluation if any of these symptoms occur. They are also directed to obtain close outpatient follow up within 2-3 days. Discharge Plan Discharge Clinical Impression: Nausea, vomiting and diarrhea Patient Disposition: Home, Self-Care Condition: Stable Instructions: Acute Nausea and Vomiting (DC), Acute Diarrhea (ED) Additional Instructions: As we discussed, use Zofran every 8 hours as needed for nausea and vomiting. You can take more Imodium every 2-4 hours if needed with each loose stool. Please return to the ER right if you have worsening symptoms especially uncontrolled vomiting or diarrhea, dehydration, bloody or mucousy stool, high fever, or any other concerns. Come back to the ER or recheck with your doctor in 48 hours if you are not improving. Prescriptions: No Action No Known Home Medications albuterol sulfate 90 mcg/actuation HFA aerosol inhaler 2 puff inhalation 6XD PRN (Reason: shortness of breath or wheezing) Qty: 6.7 0RF prednisone 20 mg tablet 20 mg PO BID Qty: 10 0RF Follow Up/Referrals: Provider,Not a Local [Primary Care Provider] - Stand Alone Forms: [employer] Info Instructions
[2024-09-07] MEDS: LOPERAMIDE HCL 2 MG CAPSULE 4 MG PO (23:09)
[2024-09-07] MEDS: ONDANSETRON ODT 4 MG TAB PO (23:09)
--- NOTE | 2024-09-08 00:24 | PC.NURSE ---
written and verbal D/ per MD and RN. pt encouraged to take small sips of fluids and perhaps clear liquids until am. Pt ambulate out with stable gait
== END 2024-09-08 00:30 | disposition home or self-care (01) ==
PROVIDERS: Emergency Provider Emergency Medicine
DX: R11.2 Nausea with vomiting, unspecified (principal); R19.7 Diarrhea, unspecified
CPT/HCPCS: 99283; A9270

== ENCOUNTER 2024-11-24 19:36 | Emergency (ER) | payer OTHER, SELFPAY ==
[2024-11-24 19:38] VITALS: BP 157/82; PULSE 85; RESP 18; TEMP 36.7; O2SAT 98; BMI 20.4
--- NOTE | 2024-11-24 19:41 | ED.GENADULT ---
HPI - General Adult General Date Seen: 11/24/24 Chief complaint: Abdominal Pain Stated complaint: R side abdominal pain, nausea Time Seen by Provider: 11/24/24 19:37 History of Present Illness HPI narrative: 29 yo M presenting to the ER today for abdominal pain and nausea. He reports a previous history of 2 known kidney stones. No previous abdominal surgeries. No diagnosis of any long-term GI problems such as Crohn's disease, IBD, IBS, cyclic vomiting. In review of his records I saw him about 3 months ago for vomiting and diarrhea (at that time his child was also been seeing for diarrhea). Prior to that had been seen in the ER in June 2024 for abdominal pain. Nonspecific lab workup and symptomatic management. He reports that for the past 3 or 4 days he has been having pain in his right flank and sometimes in the right lower quadrant mid abdomen that radiates down into both of his testicles. He thought it was probably passing another kidney stone. He says he was feeling quite a bit better yesterday and earlier today. This evening pain flared up. Pain is again in his right lower quadrant and bladder area but also in the epigastrium and right upper quadrant. He feels those abdomen is hot and ?on fire?. He is nauseous but not vomiting. He is not running a fever. He had difficulty urinating tonight describing that it was difficult to get urine out in a came out and small spurts and was somewhat dark and concentrated. No visible blood or sediment in the urine. He is not having any more pain in his testicles. He has not noted any testicular swelling or lumps. No known injury. He does drink alcohol, almost every day. He does endorse some marijuana use but says it is only occasional. Not regular. No previous diagnosis of cannabis hyperemesis syndrome or cyclic vomiting. Related Data Home Medications ?Medication ?Instructions ?Recorded ?Confirmed No Known Home Medications 05/24/22 03/26/24 Previous Rx's ?Medication ?Instructions ?Recorded albuterol sulfate 90 mcg/actuation 2 puff inhalation 6XD PRN 12/31/23 aerosol inhaler shortness of breath or wheezing #6.7 grams prednisone 20 mg tablet 20 mg PO BID #10 tabs 12/31/23 Allergies Allergy/AdvReac Type Severity Reaction Status Date / Time No Known Drug Allergies Allergy Verified 05/24/22 20:02 [facility] Medical History No significant past medical history Surgical History No significant past surgical history Social History Smoking Status: Current some day smoker What tobacco products do you use: cigarettes Smoking packs per day: 1 Smoking cigarettes per day: 20.0 Do you use any of these nicotine containing products: None Second hand tobacco smoke exposure: Yes How often do you have a drink containing alcohol: 4 or more times a week How many standard drinks containing alcohol do you have on a typical day: 3 or 4 How often do you have six or more drinks on one occasion: Monthly AUDIT-C Alcohol total score: 7 Non-prescribed substance use: marijuana (any form) service: No Exam Narrative: Exam Narrative: Constitutional: Appears well-developed and well-nourished. Alert. Conversant. Looks uncomfortable, somewhat greenish tinge to his face. No jaundice. HENT: Head: Atraumatic. Nose: Nose normal. Mouth/Throat: Oral mucosa is clear and moist. no trismus. Pharynx normal. Tonsils symmetric. No tonsillar enlargement, erythema, or exudate. Eyes: Conjunctivae normal. EOM normal. Pupils equal, round, and reactive to light. No scleral icterus. Neck: Normal range of motion. Neck supple. No tracheal deviation present. Cardiovascular: Normal rate, regular rhythm. No gallop. No friction rub. No murmur heard. Symmetric radial artery pulses Pulmonary/Chest: Effort normal. No stridor. No respiratory distress. No wheezes. No rales. No rhonchi . Abdominal: Soft. Bowel sounds normal. No distension. No mass. Right lower quadrant and right upper quadrant/epigastric> suprapubic and left lower quad tenderness. No rebound. No guarding. Mild bilateral CVA tenderness Musculoskeletal: RUE: Normal range of motion. No tenderness. No deformity LUE: Normal range of motion. No tenderness. No deformity RLE: Normal range of motion. No edema. No tenderness. No deformity LLE: Normal range of motion. No edema. No tenderness. No deformity Neurological: Alert and oriented to person, place, and time. Normal strength. CN II-VII intact. No sensory deficit. GCS eye subscore is 4. GCS verbal subscore is 5. GCS motor subscore is 6. Normal coordination Skin: Skin is warm and dry. No rash noted. No pallor. Normal capillary refill. Psychiatric: Normal mood. Normal affect. Const: Vital Signs, click to edit/add: Vital Signs - 24 hr 11/24/24 19:38 Temperature 98.0 F Pulse Rate [Left P ulse Oximeter] 85 Respiratory Rate 18 Blood Pressure [Ri ght Upper Arm] 157/82 H Pulse Oximetry 98 Oxygen Delivery Me thod Room Air Course Course ED Course: Recheck-has completed L of saline. Nausea improved. Still some pain but overall feels comfortable enough he can go home. He lives close to the hospital but, but with the bad weather, does not want stay here at the ER too late Vital Signs Vital signs: Initial Vital Signs Temperature 98.0 F 11/24/24 19:38 Temperature Source Temporal Artery Scan 11/24/24 19:38 Pulse Rate 85 11/24/24 19:38 Pulse Rhythm Regular 11/24/24 19:38 Respiratory Rate 18 11/24/24 19:38 Blood Pressure 157/82 H 11/24/24 19:38 Blood Pressure Mean 107 H 11/24/24 19:38 Blood Pressure Position Sitting 11/24/24 19:38 Pulse Oximetry 98 11/24/24 19:38 Oxygen Delivery Method Room Air 11/24/24 19:38 Vital Signs Temperature 98.0 F 11/24/24 19:38 Pulse Rate 85 11/24/24 19:38 Respiratory Rate 18 11/24/24 19:38 Blood Pressure 157/82 H 11/24/24 19:38 Pulse Oximetry 98 11/24/24 19:38 Oxygen Delivery Method Room Air 11/24/24 19:38 Temperature 98.0 F 11/24/24 19:38 Pulse Rate 85 11/24/24 19:38 Respiratory Rate 18 11/24/24 19:38 Blood Pressure 157/82 H 11/24/24 19:38 Pulse Oximetry 98 11/24/24 19:38 Oxygen Delivery Method Room Air 11/24/24 19:38 Medications Administered Medications: Generic Name Dose Route Start Last Admin Trade Name Freq PRN Reason Stop Dose Admin Hydromorphone HCl 0.5 mg 11/24/24 19:53 11/24/24 20:03 Hydromorphone 0.5 Mg/0.5 Ml Inj IVP 0.5 mg Q1H PRN Administration Pain Discontinued Medications Generic Name Dose Route Start Last Admin Trade Name Clint PRN Reason Stop Dose Admin Ketorolac Tromethamine 15 mg 11/24/24 19:53 11/24/24 20:02 Ketorolac 15 Mg/Ml Inj IVP 11/24/24 19:54 15 mg ONCE ONE Administration Ondansetron HCl 4 mg 11/24/24 19:53 11/24/24 20:03 Ondansetron 2 Mg/Ml Inj IVP 11/24/24 19:54 4 mg ONCE ONE Administration Medical Decision Making MDM Narrative Medical decision making narrative: Presented to the Emergency Department with a few days of lower/right flank abdominal pain. He was getting better earlier today but then had a flare-up of pain more diffusely in his abdomen and also in his right lower quadrant this evening. He is also nauseous but not vomiting The differential diagnosis of abdominal pain includes: Appendicitis, Bowel Obstruction, Ulcer, Ischemia, Cholecystitis, Diverticulitis, Pancreatitis, UTI, kidney stone, Enteritis/Colitis, amongst many other etiologies. He is not having any genitourinary pain this evening to suggest torsion, epididymitis, orchitis. Laboratory testing does not reveal a cause for the patient's pain. Stone protocol CT Imaging is noted to be normal. The exact etiology of the abdominal pain is not clear at this time. Bilirubin is abnormal at 2.6 which is similar to previous ER visits. Unclear cause. However, he does report heavy alcohol consumption last night. Other LFTs are normal, in fact alk-phos is actually below normal. Lipase normal. In review of his old records I see that he was here on 03/26/2024 and had bilirubin of 2.8 after heavy alcohol consumption at that time to. Discussed with the patient. He says he will try to quit drinking. Would recommend close outpatient follow-up with primary care within a week for recheck labs. No life threatening cause or need for emergent surgery or hospital admission is detected today. The patient was advised that if symptoms do not completely resolve within another 24-36 hours re-evaluation with primary care or return to the ED is indicated. The patient also understands that if they worsen, they should return to the ER right away. I discussed the uncertainty about the diagnosis and answered the patient's questions. Abdominal pain return precautions discussed. [facility] prescription for [place] and Zofran. Opiate precautions reviewed. Lab Data Labs: Lab Results 11/24/24 11/24/24 Range/Units 20:08 20:28 WBC 8.19 (4.50-11.00) K/uL RBC 5.74 (4.30-5.90) m/uL Hgb 18.1 H (13.5-17.5) gm/dL Hct 51.0 (37.0-53.0) % MCV 89 (80-100) fL MCH 32 (26-34) pg MCHC 36 (32-36) gm/dL RDW Coeff of [place] 12.2 (11.5-15.5) % Plt Count 287 (140-440) K/uL Neut % (Auto) 55.0 (42.0-72.0) % Lymph % (Auto) 33.9 (20-44) % [place] % (Auto) 8.9 (0.0-11.0) % Eos % (Auto) 1.1 (0.0-7.0) % Baso % (Auto) 1.0 (0.0-3.0) % Neut # (Auto) 4.50 (1.7-7.0) K/uL Lymph # (Auto) 2.78 (0.90-2.90) K/uL [place] # (Auto) 0.70 (0.00-0.90) K/UL Eos # (Auto) 0.09 (0.00-0.50) K/uL Baso # (Auto) 0.08 (0.00-0.30) K/uL Abs Immat Gran (auto) 0.01 (0.00-0.30) K/uL Imm/Tot Granulo (auto) 0.1 % Sodium 135 (135-149) mmol/L Potassium 3.7 (3.6-5.1) mmol/L Chloride 100 (96-114) mmol/L Carbon Dioxide 24 (20-32) mmol/L Anion Gap 11 (7-15) mEq/L BUN 10 (5-24) mg/dL Creatinine 1.3 (0.5-1.5) mg/dL Estimated Creat Clear 70.56 Estimated GFR 77 ml/min Glucose 122 H (60-115) mg/dL Lactate 1.2 (0.5-1.9) mmol/L Calcium 9.4 (8.4-10.6) mg/dL Total Bilirubin 2.6 H (0.1-1.5) mg/dL AST 27 (12-35) U/L ALT 23 (4-50) U/L Alkaline Phosphatase 37 L (40-150) U/L Total Protein 7.6 (6.0-8.3) g/dL Albumin 4.7 (3.3-5.0) g/dL Lipase 41 (23-300) U/L Urine Color Yellow (Yellow) Urine Appearance Clear (Clear) Urine pH 7.5 (5.0-8.5) Ur Specific [place] 1.020 (1.000-1.030) Urine Protein 3+ A (Negative) Urine Glucose (UA) Negative (Negative) Urine Ketones 1+ A (Negative) Urine Blood Negative (Negative) Urine Nitrite Negative (Negative) Urine Bilirubin 1+ A (Negative) Urine Urobilinogen 2.0 A (0.2-1.0) Ur Leukocyte Esterase Negative (Negative) Urine RBC 0-2 (0-2) Urine WBC 0-2 (0-5) Ur Squamous Epith Cells Few (None-Few) Urine Bacteria None (None) Imaging Data CT scan - abdomen: Attestation: I have reviewed the pertinent imaging results. My impression: No definite obstructing kidney stones or hydronephrosis. Appendix looks normal to me. Radiologist's impression: IMPRESSION: 1. No acute findings in the abdomen or pelvis on this noncontrast exam. 2. No obstructing urinary calculi. No definite signs of bladder inflammation. 3. The appendix is negative. Discharge Plan Discharge Clinical Impression: Abdominal pain Patient Disposition: Home, Self-Care Condition: Stable Instructions: Abdominal Pain (ED) Additional Instructions: As we discussed, please come back to the ER if you have worsening symptoms especially worsening pain, uncontrolled vomiting, new fever, or any problems. If your pain is not improved within the next 24-36 hours, please recheck with your doctor or come back to the ER for re-evaluation. Use the prescription nausea medication and pain medication as needed. Be careful because prescription pain he was can cause dizziness, drowsiness, constipation, and can be addictive. Do not drive for 6 hours after taking prescription pain medication. Even if you get better, please recheck with your regular doctor within 1 week to have a repeat blood test for your liver. Prescriptions: No Action No Known Home Medications albuterol sulfate 90 mcg/actuation HFA aerosol inhaler 2 puff inhalation 6XD PRN (Reason: shortness of breath or wheezing) Qty: 6.7 0RF prednisone 20 mg tablet 20 mg PO BID Qty: 10 0RF Follow Up/Referrals: Provider,Not a Local [Primary Care Provider] - Stand Alone Forms: [employer] Info Instructions
[2024-11-24] MEDS: KETOROLAC 15 MG/ML inj IVP (20:02)
[2024-11-24] MEDS: HYDROmorphone 0.5 mg/0.5 ml inj IVP (20:03)
[2024-11-24] MEDS: ONDANSETRON 2 MG/ML inj 4 MG IVP (20:03)
[2024-11-24 20:14] LABS: Lactate* 1.2 mmol/L (0.5-1.9)
[2024-11-24 20:15] LABS: Basophils Absolute Auto 0.08 K/uL (0.00-0.30); Eosinophils Absolute Auto 0.09 K/uL (0.00-0.50); Eosinophils Percent Auto 1.1 % (0.0-7.0); Hemoglobin* 18.1 gm/dL (13.5-17.5); Immature Granulocytes Abs Auto 0.01 K/uL (0.00-0.30); Immature Granulocytes Pct Auto 0.1 %; Lymphocytes Absolute Auto 2.78 K/uL (0.90-2.90); Lymphocytes Percent Auto 33.9 % (20-44); Mean Corpuscular HGB Conc 36 gm/dL (32-36); Mean Corpuscular Hemoglobin 32 pg (26-34); Mean Corpuscular Volume 89 fL (80-100); Monocytes Percent Auto 8.9 % (0.0-11.0); Platelet Count* 287 K/uL (140-440); RDW Coefficient of Variation % 12.2 % (11.5-15.5); Red Blood Count 5.74 m/uL (4.30-5.90); White Blood Count* 8.19 K/uL (4.50-11.00)
[2024-11-24 20:18] LABS: Slide Review Reflex No
[2024-11-24 20:29] LABS: Albumin* 4.7 g/dL (3.3-5.0); Chloride* 100 mmol/L (96-114); Potassium* 3.7 mmol/L (3.6-5.1); Sodium* 135 mmol/L (135-149)
[2024-11-24] MEDS: 0.9 % SODIUM CHLORIDE 1000 ml 1,000 ML IV (20:31)
[2024-11-24 20:32] LABS: Alanine Aminotransferase* 23 U/L (4-50); Alkaline Phosphatase* 37 U/L (40-150); Anion Gap 11 mEq/L (7-15); Aspartate Amino Transferase* 27 U/L (12-35); Bilirubin Total* 2.6 mg/dL (0.1-1.5); Blood Urea Nitrogen* 10 mg/dL (5-24); Calcium* 9.4 mg/dL (8.4-10.6); Carbon Dioxide* 24 mmol/L (20-32); Creatinine* 1.3 mg/dL (0.5-1.5); Est. Creatinine Clearance* 70.56; Estimated Glomerular Filt Rate 77 ml/min; Glucose* 122 mg/dL (60-115); Lipase* 41 U/L (23-300); Total Protein* 7.6 g/dL (6.0-8.3)
[2024-11-24 20:33] LABS: Appearance Urine Clear (Clear); Bilirubin Urine 1+ (Negative); Blood Urine Negative (Negative); Color Urine Yellow (Yellow); Glucose Urine Negative (Negative); Ketones Urine 1+ (Negative); Leukocyte Esterase Urine Negative (Negative); Nitrite Urine Negative (Negative); Protein Urine 3+ (Negative); pH Urine 7.5 (5.0-8.5)
[2024-11-24 21:03] LABS: RBC Urine 0-2 (0-2); Squamous Epithelial Cell Urine Few (None-Few); WBC Urine 0-2 (0-5)
== END 2024-11-24 21:32 | disposition home or self-care (01) ==
PROVIDERS: Emergency Provider Emergency Medicine
DX: R10.9 Unspecified abdominal pain (principal)
CPT/HCPCS: 36415; 74176; 80053; 81001; 83605; 83690; 85025; 96361; 96374; 96375; 99283; 99284; J1171; J1885; J2405; J7030

== ENCOUNTER 2025-07-31 20:02 | Emergency (ER) | payer OTHER, SELFPAY ==
[2025-07-31 20:09] VITALS: BP 145/89; PULSE 66; RESP 12; TEMP 37; O2SAT 97; BMI 20.5
[2025-07-31 20:42] LABS: Appearance Urine Clear (Clear)
--- NOTE | 2025-07-31 20:46 | ED.GENADULT ---
HPI - General Adult General Chief complaint: Abdominal Pain Stated complaint: Abd pain, Groin pain Time Seen by Provider: 07/31/25 20:32 Source: patient Mode of arrival: ambulatory Limitations: no limitations History of Present Illness HPI narrative: 29-year-old male with a prior history of ureterolithiasis presents to the emergency department with suprapubic area pain for the past 4 hours. Has not tried any Tylenol, ibuprofen or other similar interventions. No dysuria, no hematuria. No nausea or vomiting. No trauma or injury. Normal bowel movements and appetite. No fevers. Pain is constant, achy. No history of abdominal surgeries. He has had 1 stone thinks was probably about 2 years ago. It did not require surgical intervention, passed without complication. Denies other systemic symptoms. Negative ROS times 12 with the exception of the suprapubic pain. No CVA area pain. No history of chronic kidney disease. No long-term medications, no allergies. Related Data Home Medications ?Medication ?Instructions ?Recorded ?Confirmed No Known Home Medications 05/24/22 03/26/24 Previous Rx's ?Medication ?Instructions ?Recorded albuterol sulfate 90 mcg/actuation 2 puff inhalation 6XD PRN 12/31/23 aerosol inhaler shortness of breath or wheezing #6.7 grams prednisone 20 mg tablet 20 mg PO BID #10 tabs 12/31/23 Allergies Allergy/AdvReac Type Severity Reaction Status Date / Time No Known Drug Allergies Allergy Verified 05/24/22 20:02 [facility] Medical History No significant past medical history Surgical History No significant past surgical history Social History Smoking Status: Current some day smoker What tobacco products do you use: cigarettes Smoking packs per day: 1 Smoking cigarettes per day: 20.0 Do you use any of these nicotine containing products: None Second hand tobacco smoke exposure: Yes How often do you have a drink containing alcohol: 4 or more times a week How many standard drinks containing alcohol do you have on a typical day: 3 or 4 How often do you have six or more drinks on one occasion: Monthly AUDIT-C Alcohol total score: 7 Non-prescribed substance use: marijuana (any form) service: No Exam Const: Vital Signs, click to edit/add: Vital Signs - 24 hr 07/31/25 20:09 Temperature 98.6 F Pulse Rate [Pulse Oximeter] 66 Respiratory Rate 12 Blood Pressure [Ri ght Upper Arm] 145/89 H Pulse Oximetry 97 Oxygen Delivery Me thod Room Air Documenting provider has reviewed patient's vital signs: yes Common normals: no apparent distress General appearance: cooperative and well kempt HENMT: Common normals: moist oral mucous membranes and oropharynx normal Face and sinus: normal facial exam Eye: Common normals: conjunctivae normal General eye: normal appearance of both eyes Conjunctiva: conjunctiva(e) normal Neck & C-Spine: General: normal visual inspection Resp: Common normals: normal respiratory effort and no use of accessory muscles Effort & inspection: able to speak in complete sentences Cardio: Common normals: regular rate, regular rhythm, S1 normal heart sound, S2 normal heart sound and no murmurs Rate: regular rate Rhythm: regular rhythm Heart sounds: S1 normal and S2 normal GI: Common normals: Normal to inspection, nondistended, normoactive bowel sounds present, soft to palpation, no hepatosplenomegaly and no masses Palpation: soft and no hepatosplenomegaly Other: Mildly tender suprapubic region only. No masses. No rebound tenderness or guarding Back & Pelvis: Other: Very mild right-sided CVA tenderness, nothing on the left. Back appears visually normal Extremity: Common normals: normal to inspection and normal capillary refill Psych: Common normals: speech normal Appearance: well kempt Attitude: engaged Activity/motor behavior: appropriate eye contact Speech: normal speech Insight: insight good Judgement: judgment good Skin: Common normals: no rashes or lesions noted General skin exam: no rashes or lesions noted Course Course ED Course: 29-year-old male with suprapubic area pain, history of kidney stones. Differential diagnosis high us for ureterolithiasis cannot exclude bladder infection, diverticulitis, appendicitis, colitis, musculoskeletal pain, hernia, testicular torsion, vascular disease, amongst others. Will start with urinalysis. Place peripheral IV and give Toradol for pain control. CBC, comprehensive metabolic panel, CRP. If urinalysis shows traces of blood or other signs that would point me towards kidney stone, will plan for CT without contrast. Reevaluation(s) Time of Reevaluation #1: 22:45 Reevaluation #1: Counseled patient on findings. The Toradol helping. CT and blood work were overall reassuring. I let him know that is mild elevation in liver enzymes is probably sign that he should cut down on drinking a little bit. He agrees. I would like for to increase his water intake, use Tylenol and ibuprofen if needed and see where things go. He certainly could have passed a small stone causing irritation, he could have some mild lower pelvic irritation from a virus. We will culture the urine just to make sure there are no signs of real infection but I did not see enough convincing evidence on his urinalysis to treat. Counseled that we are seeing a lot of [id number] virus going around as well and this could be some irritation from lower pelvic viral findings as well but overall things seem quite benign. If he has high fever, persistent vomiting, severe abdominal pain or other findings, he should return to the emergency room. Written instructions provided, all questions answered Vital Signs Vital signs: Initial Vital Signs Temperature 98.6 F 07/31/25 20:09 Temperature Source Temporal Artery Scan 07/31/25 20:09 Pulse Rate 66 07/31/25 20:09 Pulse Rhythm Regular 07/31/25 20:09 Respiratory Rate 12 07/31/25 20:09 Blood Pressure 145/89 H 07/31/25 20:09 Blood Pressure Mean 107 H 07/31/25 20:09 Blood Pressure Position Sitting 07/31/25 20:09 Pulse Oximetry 97 07/31/25 20:09 Oxygen Delivery Method Room Air 07/31/25 20:09 Vital Signs Temperature 98.6 F 07/31/25 20:09 Pulse Rate 66 07/31/25 20:09 Respiratory Rate 12 07/31/25 20:09 Blood Pressure 145/89 H 07/31/25 20:09 Pulse Oximetry 97 07/31/25 20:09 Oxygen Delivery Method Room Air 07/31/25 20:09 Temperature 98.6 F 07/31/25 20:09 Pulse Rate 66 07/31/25 20:09 Respiratory Rate 12 07/31/25 20:09 Blood Pressure 145/89 H 07/31/25 20:09 Pulse Oximetry 97 07/31/25 20:09 Oxygen Delivery Method Room Air 07/31/25 20:09 Medications Administered Medications: Generic Name Dose Route Start Last Admin Trade Name Clint PRN Reason Stop Dose Admin Ketorolac Tromethamine 15 mg 07/31/25 20:45 07/31/25 21:28 Ketorolac 15 Mg/Ml Inj IVP 07/31/25 20:46 15 mg ONCE ONE Administration Medical Decision Making Lab Data Lab results reviewed: Yes I reviewed the patient's lab results Lab results narrative: Mild leukocytosis, hemoglobin normal. Has a slight elevation of AST compared ALT, does endorse alcohol usage. CRP is negative, remainder of electrolytes and renal function are normal. Urinalysis has quite a few bacteria but no other findings consistent with infection. Overall pretty reassuring. Labs: Lab Results 07/31/25 07/31/25 07/31/25 Range/Units 20:25 20:45 21:20 WBC 12.60 H (4.50-11.00) K/uL RBC 5.61 (4.30-5.90) m/uL Hgb 17.8 H (13.5-17.5) gm/dL Hct 50.2 (37.0-53.0) % MCV 90 (80-100) fL MCH 32 (26-34) pg MCHC 36 (32-36) gm/dL RDW Coeff of Collette 12.4 (11.5-15.5) % Plt Count 261 (140-440) K/uL Neut % (Auto) 74.6 H (42.0-72.0) % Lymph % (Auto) 16.4 L (20-44) % [place] % (Auto) 6.5 (0.0-11.0) % Eos % (Auto) 1.7 (0.0-7.0) % Baso % (Auto) 0.6 (0.0-3.0) % Neut # (Auto) 9.40 H (1.7-7.0) K/uL Lymph # (Auto) 2.10 (0.90-2.90) K/uL [place] # (Auto) 0.80 (0.00-0.90) K/UL Eos # (Auto) 0.20 (0.00-0.50) K/uL Baso # (Auto) 0.10 (0.00-0.30) K/uL Abs Immat Gran (auto) 0.00 (0.00-0.30) K/uL Imm/Tot Granulo (auto) 0.2 % Sodium 138 (135-149) mmol/L Potassium 3.9 (3.6-5.1) mmol/L Chloride 101 (96-114) mmol/L Carbon Dioxide 28 (20-32) mmol/L Anion Gap 9 (7-15) mEq/L BUN 12 (5-24) mg/dL Creatinine 1.1 (0.5-1.5) mg/dL Estimated Creat Clear 83.77 Estimated GFR 94 ml/min Glucose 98 (60-115) mg/dL Calcium 9.5 (8.4-10.6) mg/dL Total Bilirubin 2.0 H (0.1-1.5) mg/dL AST 42 H (12-35) U/L ALT 45 (4-50) U/L Alkaline Phosphatase 45 (40-150) U/L C-Reactive Protein < 0.5 L (0.5-1.0) mg/dL Total Protein 7.7 (6.0-8.3) g/dL Albumin 4.6 (3.3-5.0) g/dL Urine Color Yellow (Yellow) Urine Appearance Clear (Clear) Urine pH 7.0 (5.0-8.5) Ur Specific [place] 1.020 (1.000-1.030) Urine Protein Negative (Negative) Urine Glucose (UA) Negative (Negative) Urine Ketones Negative (Negative) Urine Blood Negative (Negative) Urine Nitrite Negative (Negative) Urine Bilirubin Negative (Negative) Urine Urobilinogen 1.0 (0.2-1.0) Ur Leukocyte Esterase Negative (Negative) Urine RBC 0-2 (0-2) Urine WBC 0-2 (0-5) Ur Squamous Epith Cells None (None-Few) Amorphous Sediment Many A (None) Urine Bacteria Moderate A (None) Imaging Data CT scan - abdomen: Attestation: I have reviewed the pertinent imaging results. My impression: Normal appearing CT. No hydronephrosis. Bladder looks normal. No evidence of stones. What I can see of the colon, small bowel and appendix and gallbladder also appear pretty normal. Radiologist's impression: IMPRESSION: Nonobstructing left upper pole nephrolithiasis. No evidence of obstructive uropathy. No other acute noncontrast CT abnormality in the abdomen or pelvis. Please note that all CT scans at this facility use dose modulation, iterative reconstruction, and/or weight-based dosing when appropriate to reduce radiation dose to as low as reasonably achievable. Dictated by Venu Lomas MD @ 07/31/2025 9:26:29 PM Discharge Plan Discharge Clinical Impression: Abdominal pain, suprapubic Patient Disposition: Home w/ Parent or Adult Instructions: Pelvic Pain in Men (ED) Additional Instructions: As we discussed, there does not seem to be any sign of kidney stone currently in your urinary tract. It is highly possible that you passed a small 1 and it scratched things up on the way down and is the source of the discomfort you are having now. There is a little bit of bacteria in your urine which be part of this is well. But I do not see any signs of persistent urinary infection. We will culture this just to be sure. The remainder of your labs do not show any major abnormalities. It does show that you could drink more water and potentially cut down on your alcohol consumption a little bit but there are no signs that it is causing major damage to your health. For pain, I recommend Tylenol 1000 mg every 6 hours and or ibuprofen 600 mg every 6 hours. Take it easy for the next 24 hours and then you may resume typical duties tomorrow evening. If you have persistent fevers, significant burning with urination, persistent vomiting, severe abdominal pain or other abnormality, you should return to the emergency room. Activity Level: No Restrictions Discharge Diet: Regular Prescriptions: No Action No Known Home Medications albuterol sulfate 90 mcg/actuation HFA aerosol inhaler 2 puff inhalation 6XD PRN (Reason: shortness of breath or wheezing) Qty: 6.7 0RF prednisone 20 mg tablet 20 mg PO BID Qty: 10 0RF Follow Up/Referrals: Provider,Not a Local [Primary Care Provider, Family Practice] Stand Alone Forms: [facility] [employer] Info Instructions
--- NOTE | 2025-07-31 21:00 | CRLHL7_ITS ---
For Patients: As a result of the Century Cures Act, medical imaging exams and procedure reports are released immediately into your electronic medical record. You may view this report before your referring provider. If you have questions, please contact your health care provider. INDICATION: UVJ pain, history of stones TECHNIQUE: CT abdomen and pelvis without contrast. COMPARISON: CT abdomen and pelvis: 11/24/2024 FINDINGS: Suboptimal visceral and lymph node evaluation in the absence of intravenous contrast. Lower chest: Scattered curvilinear scarring or atelectasis. Otherwise unremarkable. Liver: Normal size without focal noncontrast abnormality. Gallbladder and bile ducts: Normal gallbladder. No intrahepatic or extrahepatic biliary dilation. Pancreas: Unremarkable. Spleen: Normal size. Adrenal glands: Normal. Kidneys: Nonobstructing left upper pole nephrolithiasis similar to the prior CT. No hydronephrosis. No ureteral calculi. GI tract: Unremarkable. No evidence of bowel obstruction. Normal appendix. Vasculature: Abdominal aorta is normal in caliber. Lymph nodes: No enlarged lymph nodes by size criteria within limits of noncontrast exam. Peritoneum/Abdominal Wall: Unremarkable. No free air or significant free fluid Pelvis: Urinary bladder is partially distended without disproportionate wall thickening. Bones: No aggressive osseous lesions. IMPRESSION: Nonobstructing left upper pole nephrolithiasis. No evidence of obstructive uropathy. No other acute noncontrast CT abnormality in the abdomen or pelvis. Please note that all CT scans at this facility use dose modulation, iterative reconstruction, and/or weight-based dosing when appropriate to reduce radiation dose to as low as reasonably achievable. Dictated by Venu Lomas MD @ 07/31/2025 9:26:29 PM (Electronically Signed)
[2025-07-31 21:44] LABS: Hematocrit* 50.2 % (37.0-53.0); Hemoglobin* 17.8 gm/dL (13.5-17.5); Immature Granulocytes Pct Auto 0.2 %; Mean Corpuscular HGB Conc 36 gm/dL (32-36); Mean Corpuscular Hemoglobin 32 pg (26-34); Mean Corpuscular Volume 90 fL (80-100); RDW Coefficient of Variation % 12.4 % (11.5-15.5); Red Blood Count* 5.61 m/uL (4.30-5.90); White Blood Count* 12.60 K/uL (4.50-11.00)
[2025-07-31 21:59] LABS: Immature Granulocytes Abs Auto 0.00 K/uL (0.00-0.30); Lymphocytes Absolute Auto 2.10 K/uL (0.90-2.90)
[2025-07-31 22:00] LABS: Slide Review Reflex No
[2025-07-31 22:05] LABS: Chloride* 101 mmol/L (96-114)
[2025-07-31 22:06] LABS: Albumin* 4.6 g/dL (3.3-5.0); Potassium* 3.9 mmol/L (3.6-5.1); Sodium* 138 mmol/L (135-149)
[2025-07-31 22:08] LABS: Blood Urea Nitrogen* 12 mg/dL (5-24); Creatinine* 1.1 mg/dL (0.5-1.5); Est. Creatinine Clearance* 83.77; Estimated Glomerular Filt Rate 94 ml/min
[2025-07-31 22:09] LABS: Alanine Aminotransferase* 45 U/L (4-50); Alkaline Phosphatase* 45 U/L (40-150); Anion Gap 9 mEq/L (7-15); Aspartate Amino Transferase* 42 U/L (12-35); Bilirubin Total* 2.0 mg/dL (0.1-1.5); Calcium* 9.5 mg/dL (8.4-10.6); Carbon Dioxide* 28 mmol/L (20-32); Glucose* 98 mg/dL (60-115); Total Protein* 7.7 g/dL (6.0-8.3)
== END 2025-07-31 22:50 | disposition home or self-care (01) ==
PROVIDERS: Emergency Provider Family Medicine
DX: R10.9 Unspecified abdominal pain (principal); R10.24 Suprapubic pain
CPT/HCPCS: 36415; 74176; 80053; 81001; 85025; 86140; 87086; 96374; 99284; 99285; J1885